=== PATIENT | female | born 1985 | race Caucasian/White ===

== ENCOUNTER 2016-09-14 12:16 | Emergency (ER) | payer MEDICAID ==
--- NOTE | 2016-09-14 12:30 | ED Physician Chart ---
Chief Complaint/HPI - Patient Information Date Seen:: 09/14/16 Time Seen:: 12:20 Chief Complaint:: Posterior neck pain for 4 days. History of Present Illness:: Pt is Chinese speaking. Interpretation is provided by my nurse MrJulito Martir Carpenter. Pt has had constant posterior neck pain extending to posterior scalp in head. Pain is characterized as throbbing. No fever. No known injury. No UE weakness or numbness. Pain can be aggravated with neck movements. Lasts analgesic use was Tylenol 325 mg po at 4 am today. Allergies:: NKA Vitals:: see Nurse Note. Historian:: Patient Family MD/PCP:: Unknown. LMP:: 06/18/16. Pt has a confirmed , followed by Dr. Mims at [facility]. Review:: Nurse's Note Reviewed Review of Systems - Review of Systems General/Constitutional: No fever, No chills, No weight loss, No weakness, No diaphoresis, No edema, No loss of appetite Skin: No skin lesions, No rash, No bruising Head: No headache, No light-headedness Eyes: No loss of vision, No pain, No diplopia ENT: No earache, No nasal drainage, No sore throat, No tinnitus Neck: Neck pain, No swelling, No stiffness, No mass noted Pulmonary: No SOB, No cough, No sputum, No wheezing GI: No nausea, No vomiting, No diarrhea, No pain, No melena, No hematochezia, No constipation, No hematemesis G/U: No dysuria, No frequency, No hematuria Desulfurizer Machine: No vaginal discharge, No abnormal vaginal bleed Musculoskeletal: No back pain, Other (Posterior neck pain, see HPI.) Endocrine: No polyuria, No polydipsia Psychiatric: No prior psych history Hematopoietic: No bruising, No lymphadenopathy Allergic/Immuno: No urticaria, No angioedema Neurological: No syncope, No focal symptoms, No weakness, No paresthesia, No headache, No seizure, No dizziness, No confusion, No vertigo Past Medical History - Past Medical History Past Medical History: HTN Family History: HTN (mother) Social History: Non Smoker, No Alcohol, No Drug Use, Single, Other (lives with significant others.) Surgical History: ('13) Psychiatricy History: None Medication: Reviewed Physical Exam - Physical Examination General/Constitutional: Awake, Well-developed, well-nourished, Alert, No distress, GCS 15, Non-toxic appearing, Ambulatory Other Gen/Cons comments:: Breathes comfortably, speaks clearly, and ambulates without difficulty. Head: Atraumatic Eyes: Lids, conjuctiva normal, PERRL, EOMI Skin: Nl inspection, No rash, No skin lesions, No ecchymosis, Well hydrated, No lymphadenopathy ENMT: External ears, nose nl, Nasal exam nl, Lips, teeth, gums nl, Oropharynx nl , Tonsils nl Neck: Full ROM w/o pain, No nuchal rigidity, No mass, No stridor Other Neck comments:: Mild tenderness with palpation at posterior neck muscle group. No swelling, erythema, crepitus or open wound. Respiratory: Nl effort/Exclusion, Clear to Auscultation, No Wheeze/Rhonchi/Rales Cardio Vascular: RRR, No murmur, gallop, rubs Extremities: No tenderness or effusion, Full ROM, normal strength in all extremities, No edema, Normal digits & nails Neuro/Psych: Alert/oriented (oriented x 3), Judgement/insight normal, Mood normal, Normal gait, No focal deficits Other Neuro/Psych comments:: Strong hand hoist operator bilaterally. ED Septic Shock - . Is Septic Shock (SBP<90, OR Lactate>4 mmol\L) present?: No Reassessment (Disposition) - Reassessment Reassessment:: 1313 Pt feels much better. Pt requests to go home now. Aftercare instructions have been given. Interpretation by my nurse Mr. Martir Carpenter. Reassessment Condition:: Improved - Diagnosis Diagnosis:: Cervical strain probably due to poor sleep posture, stable and improved. - Aftercare/Follow up Instructions Aftercare/Follow-Up Instructions:: Refer to Discharge Instructions Notes:: Avoid neck bending and straining activities. May take Tylenol 500 mg tab one tab po q4-6h prn pain. Warm compress to affected area in neck and upper back for 15 minutes q2h. F/U with Dr. Salcido or PCP of pt's choice in one day for recheck. Return to ER immediately if condition worsens or if any further questions/problems. Medication Prescribed:: None - Patient Disposition Discharge/Transfer:: Home Time:: 13:15 Condition at Disposition:: Stable, Improved
== END 2016-09-14 13:22 | disposition home or self-care (01) ==
LOC: ER 12:16
DX: S16.1XXA Strain of muscle, fascia and tendon at neck level, initial encounter (principal); I10 Essential (primary) hypertension; X58.XXXA Exposure to other specified factors, initial encounter; Y93.89 Activity, other specified; Y92.89 Other specified places as the place of occurrence of the external cause; Y99.8 Other external cause status
CPT/HCPCS: Z7610